=== PATIENT | male | born 1965 | race Caucasian/White ===

== ENCOUNTER 2023-06-07 05:41 | Day surgery (SDC) | payer BC ==
[2023-06-01 14:14] LABS: BILIRUBIN,URINE NEGATIVE (Neg); CLARITY,URINE CLEAR (Clear); COLOR,URINE YELLOW (Yellow); GLUCOSE, URINE NEGATIVE (Neg); KETONES,URINE NEGATIVE (Neg); LEUKOCYTE ESTERASE ,URINE NEGATIVE (Neg); NITRITES, URINE NEGATIVE (Neg); OCCULT BLOOD,URINE NEGATIVE (Neg); PROTEIN,URINE NEGATIVE (Neg); UROBILINOGEN,URINE 0.2 E.U/dL (0.2-1.0)
[2023-06-01 14:19] LABS: UA COLLECTION TYPE CLN CATCH MIDSTREAM
[2023-06-01 14:22] LABS: BASOPHILS % (AUTO) 0.5 % (0-1); EOSINOPHILS # (AUTO) 0.1 X10'3 (0-0.9); EOSINOPHILS % (AUTO) 1.7 % (0-6); LYMPHOCYTES # (AUTO) 2.1 X10'3 (1.1-4.8); LYMPHOCYTES % (AUTO) 34.5 % (21-51); MEAN CORPUSCULAR HEMOGLOBIN 29.2 PG (27.0-31.0); MEAN CORPUSCULAR HGB CONC 33.8 g/dL (33.0-36.5); MEAN CORPUSCULAR VOLUME 86.3 FL (78-98); MEAN PLATELET VOLUME 6.4 FL (7.4-10.4); MONOCYTES # (AUTO) 0.4 X10'3 (0-0.9); MONOCYTES % (AUTO) 6.9 % (2-12); NEUTROPHILS # (AUTO) 3.5 X10'3 (1.8-7.7); NEUTROPHILS % (AUTO) 56.4 % (42-75); PRE OP HEMATOCRIT 44.4 % (42.0-52.0); PRE OP PLATELET COUNT 252 X10'3 (140-440); PRE OP WHITE BLOOD COUNT 6.2 10'3 (4.8-10.8); RED BLOOD COUNT 5.15 X10'6 (4.70-6.10); RED CELL DISTRIBUTION WIDTH 13.7 % (11.5-14.5)
[2023-06-01 14:44] LABS: ALBUMIN/GLOBULIN RATIO 1.1 (1.1-1.5); ALKALINE PHOSPHATASE 81 IU/L (46-116); BLOOD UREA NITROGEN 13 MG/DL (7-18); BUN/CREATININE RATIO 14.4 (10.0-20.0); CALCIUM 9.1 MG/DL (8.5-10.1); CHLORIDE 102 MMOL/L (99-107); PRE OP ALT 54 U/L (30-65); PRE OP ANION GAP 7 (8-16); PRE OP AST 32 U/L (10-37); PRE OP BILIRUB, TOTAL 0.5 MG/DL (0.0-1.0); PRE OP GLUCOSE 99 MG/DL (70-104); PRE OP POTASSIUM 4.1 MMOL/L (3.4-5.1); PRE OP SODIUM 138 MMOL/L (135-145); TOTAL CARBON DIOXIDE 29.1 MMOL/L (24-32); TOTAL PROTEIN 7.6 G/DL (6.4-8.2); eGFR 87 ML/MIN
[2023-06-07] VITALS (18 sets, daily range): BP systolic 114–136; BP diastolic 69–82; PULSE 64–80; RESP 10–22; TEMP 97.6; O2SAT 92–100
[~2023-06-07] VITALS: Ht 180.3 cm; Wt 95.3 kg
[~2023-06-07 05:41] MED LIST: ESZO3TAB44 PO; ROSU40TA22 PO; cefazolin 2gm/D5W 100mL 100 ML IV ONE; famotidine 20mg tablet PO ONE; ringers solution, lacted 1,000 ML IV SCH
[2023-06-07] MEDS ORDERED: BUPIVAcaine/PF 2.5mg/ml (0.25%) 10ml vial ONE (06:54)
[2023-06-07] MEDS ORDERED: dexamethasone sod phosphate 4mg/ml inj. ONE (07:13)
[2023-06-07] MEDS ORDERED: neostigmine methylsulfate 1 MG/ML 10ml vial ONE (07:13)
[2023-06-07] MEDS ORDERED: ondansetron/PF 4mg/2ml inj ONE (07:13)
[2023-06-07] MEDS ORDERED: glycopyrrolate 0.2mg/ml inj ONE (07:13)
[2023-06-07] MEDS ORDERED: rocuronium 10mg/ml inj IV ONE (07:13)
[2023-06-07] MEDS ORDERED: LIDOcaine 2% (20mg/ml) 5ml vial ONE (07:13)
[2023-06-07] MEDS ORDERED: propofol inj 20 ML IV ONE (07:14)
[2023-06-07] MEDS ORDERED: fentaNYL/PF 50MCG/1 ML 2ML syringe ONE (07:20)
[2023-06-07] MEDS ORDERED: midazolam 1 mg/ML 2ml injection ONE (07:20)
[2023-06-07] MEDS ORDERED: hydrALAZINE 20mg/ml inj. IV PRN (07:25)
[2023-06-07] MEDS ORDERED: morphine 4 MG/ML inj SYRINge IV PRN (07:25)
[2023-06-07] MEDS ORDERED: ringers solution, lacted 1,000 ML IV SCH (07:25)
[2023-06-07] MEDS ORDERED: fentaNYL/PF 50MCG/1 ML 2ML syringe IV PRN ×2 (07:25)
[2023-06-07] MEDS ORDERED: morphine 2 MG/ML inj. syringe IV PRN (07:25)
[2023-06-07] MEDS ORDERED: labetalol 20mg/4ml (5mg/ml) syringe IV PRN (07:25)
[2023-06-07] MEDS ORDERED: ondansetron/PF 4mg/2ml inj IV PRN (07:25)
[2023-06-07] MEDS ORDERED: sevoflurane 250ml liquid IH ONE (07:30)
[2023-06-07] MEDS ORDERED: ketorolac trometh. 30mg/ml inj. ONE (07:30)
[2023-06-07] MEDS ORDERED: labetalol 20mg/4ml (5mg/ml) syringe IV ONE (08:29)
[2023-06-07] MEDS ORDERED: BUPIVAcaine/PF 2.5mg/ml (0.25%) 10ml vial IJ ONE (08:34)
[2023-06-07] MEDS ORDERED: HYDROcodone/acetaminophen 10/325mg tab PO PRN (11:50)
[2023-06-07] MEDS ORDERED: HYDROcodone/acetaminophen 5mg/325mg tablet PO PRN (11:50)
== END 2023-06-07 12:59 | disposition home or self-care (01) ==
LOC: PAS 05:41
PROVIDERS: ATTEND Surgery
DX: K40.90 Unilateral inguinal hernia, without obstruction or gangrene, not specified as recurrent (principal); E78.5 Hyperlipidemia, unspecified; Z86.16 Personal history of COVID-19; Z79.899 Other long term (current) drug therapy; Z90.49 Acquired absence of other specified parts of digestive tract; Z98.890 Other specified postprocedural states; Z84.1 Family history of disorders of kidney and ureter
CPT/HCPCS: 36415; 49650; 80053; 81003; 82948; 85025; 93005; C1781; J0690; J1100; J1885; J2250; J2270; J2405; J2704; J2710; J3010; J3490; J7030; J7120; S2900; Z7506; Z7508; Z7512; A4215; A4618; C1758